=== PATIENT | female | born 1965 | race Caucasian/White ===

== ENCOUNTER → 2023-10-09 10:50 | Outpatient (REF) | payer OTHER, SELFPAY | LOC: WDC 10:50 | PROVIDERS: ATTENDING PHYSICIAN Obstetrics & Gynecology; FAMILY PHYSICIAN Family Medicine | DX: Z12.31 Encounter for screening mammogram for malignant neoplasm of breast (principal) | CPT/HCPCS: 77063; 77067 ==

== ENCOUNTER → 2024-10-16 11:01 | Outpatient (REF) | payer OTHER, SELFPAY | LOC: WDC 11:01 | PROVIDERS: ATTENDING PHYSICIAN Obstetrics & Gynecology; FAMILY PHYSICIAN Family Medicine | DX: Z12.31 Encounter for screening mammogram for malignant neoplasm of breast (principal) | CPT/HCPCS: 77063; 77067 ==

== ENCOUNTER → 2025-04-12 13:37 | Outpatient (REF) | payer OTHER, SELFPAY | LOC: WDC 13:37 | PROVIDERS: ATTENDING PHYSICIAN Family Medicine | DX: R92.2 Inconclusive mammogram (principal); R92.30 Dense breasts, unspecified; R92.333 Mammographic heterogeneous density, bilateral breasts | CPT/HCPCS: 76641 ==